=== PATIENT | male | born 1980 | race Caucasian/White ===

== ENCOUNTER 2017-12-03 00:55 | Emergency (ER) | payer MEDICAID ==
[~2017-12-03] VITALS: Ht 172.7 cm; Wt 84.4 kg
[~2017-12-03 00:55] MED LIST: NONE PER PT; OXYC5CAP2 PO
[2017-12-03 01:03] VITALS: BP 134/89
[2017-12-03] MEDS ORDERED: CEFTRIAXONE 1,000 MG IM ONE (01:30)
[2017-12-03] MEDS ORDERED: AZITHROMYCIN 500 MG TABLET PO ONE (01:30)
[2017-12-03 01:58] LABS: CULTURE INDICATED? YES; MICROSCOPIC INDICATED
[2017-12-03] MEDS ORDERED: AZITHROMYCIN 250 MG TABLET ONE (02:07)
[2017-12-03] MEDS ORDERED: CEFTRIAXONE 250 MG ONE (02:07)
== END 2017-12-03 02:58 | disposition home or self-care (01) ==
LOC: ED 01:42
DX: A54.9 Gonococcal infection, unspecified (principal)
CPT/HCPCS: 81001; 87086; 87491; 87591; 96372; 99284; J0696

== ENCOUNTER 2018-04-22 20:52 | Emergency (ER) | payer MEDICAID ==
[~2018-04-22] VITALS: Ht 172.7 cm; Wt 88.2 kg
[2018-04-22 21:00] VITALS: BP 137/91
== END 2018-04-22 21:52 | disposition home or self-care (01) ==
LOC: ED 21:46
DX: L03.311 Cellulitis of abdominal wall (principal); L02.211 Cutaneous abscess of abdominal wall; F17.210 Nicotine dependence, cigarettes, uncomplicated
CPT/HCPCS: 99283

== ENCOUNTER 2020-12-23 01:43 | Emergency (ER) | payer MEDICAID ==
[~2020-12-23] VITALS: Ht 172.7 cm; Wt 87.7 kg
[2020-12-23 01:44] VITALS: BP 150/99
== END 2020-12-23 02:13 | disposition home or self-care (01) ==
LOC: ED 02:00
DX: L03.116 Cellulitis of left lower limb (principal); L03.115 Cellulitis of right lower limb; M25.571 Pain in right ankle and joints of right foot; M25.572 Pain in left ankle and joints of left foot
CPT/HCPCS: 99283

== ENCOUNTER 2021-01-24 05:51 | Emergency (ER) | payer MEDICAID ==
[~2021-01-24] VITALS: Ht 172.7 cm; Wt 88.9 kg
--- NOTE | 2021-01-24 06:20 | NUR ---
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
--- NOTE | 2021-01-24 06:56 | NUR ---
REPORT GIVEN TO GURVINDER REYES
[2021-01-24] MEDS ORDERED: CEFTRIAXONE 1,000 MG IM ONE (07:00)
[2021-01-24] MEDS ORDERED: CEFTRIAXONE 1,000 MG ONE (07:11)
--- NOTE | 2021-01-24 07:18 | NUR ---
pt resting in bed, call light in reach. vss
[2021-01-24 07:21] VITALS: BP 120/78
--- NOTE | 2021-01-24 08:15 | NUR ---
dc instructions reviewed.
== END 2021-01-24 08:17 | disposition home or self-care (01) ==
LOC: ED 08:11
DX: N48.1 Balanitis (principal); N34.1 Nonspecific urethritis
CPT/HCPCS: 36415; 82962; 86592; 86780; 87491; 87591; 96372; 99283; J0696